=== PATIENT | female | born 1965 | race Caucasian/White ===

== ENCOUNTER 2019-05-25 15:13 | Emergency (ER) | payer OTHER ==
[~2019-05-25 15:13] MED LIST: AMOXICILLIN/CLA1 TA1 PO; ATIVAN1 MG PO; DEPAKOTE500 MG PO; LEXAPRO 10MG10 MG PO; MACROBID 1100 MG/CAP PO; MEDROL 4MG DOSPA4 MG PO; NASONEX0.05 MG/AC NS; PHENAZOPYRIDIN200 MG PO; PRISTIQ50 M1 PO; ZOFRAN ODT4 MG PO
[2019-05-25] MEDS ORDERED: QUETIAPINE FUM150 MG PO (15:23)
[2019-05-25] MEDS ORDERED: ESCITALOPRAM10 MG PO (15:23)
[2019-05-25] MEDS ORDERED: LORAZEPAM1 M1 PO (15:23)
[2019-05-25 15:36] LABS: EOS # 0.1 (0.04-0.40); EOS % 1.2 % (1.0-5.0); HEMOGLOBIN 15.4 g/dL (12.5-16.0); MEAN CELL VOLUME 88 fl (78-100); MEAN CORPUSCULAR HEMOGLOBIN 29 pg (27-31); MEAN CORPUSCULAR HGB CONC 33 g/dL (33-37); MEAN PLATELET VOLUME 8.8 fl (7.4-10.4); MONO # 0.5 (0.20-0.80); NEU # 4.6 (1.40-6.50); PLATELET COUNT 346 K/mm3 (130-400); RED BLOOD COUNT 5.36 M/mm3 (4.10-5.30); RED CELL DISTRIBUTION WIDTH 14.4 % (11.5-14.5); WHITE BLOOD COUNT 5.9 K/mm3 (4.8-10.8)
[2019-05-25 15:37] LABS: LYMPH# 0.7 (1.50-4.00)
[2019-05-25 15:44] LABS: POTASSIUM 3.4 mmol/L (3.5-5.1)
[2019-05-25 15:45] LABS: CALCIUM 8.8 mg/dL (8.3-10.5)
[2019-05-25] MEDS ORDERED: ZOFRAN ODT4 MG PO (16:27)
[2019-05-25] MEDS ORDERED: GUAIFEN-CODEINE5 ML PO (16:27)
[2019-05-25 16:33] VITALS: BP 131/74
== END 2019-05-25 16:35 | disposition home or self-care (01) ==
LOC: ED 15:13
PROVIDERS: Family Medicine
DX: J06.9 Acute upper respiratory infection, unspecified (principal); F41.9 Anxiety disorder, unspecified; F32.9 Major depressive disorder, single episode, unspecified; I73.00 Raynaud's syndrome without gangrene

== ENCOUNTER 2021-03-08 13:00 | Outpatient (RCR) | payer OTHER ==
[~2021-03-08 13:00] MED LIST changes: +ESCITALOPRAM10 MG PO; +GUAIFEN-CODEINE5 ML PO; +LORAZEPAM1 M1 PO; +QUETIAPINE FUM150 MG PO
== END 2021-04-15 23:59 | disposition home or self-care (01) ==
LOC: PT 13:00
DX: M46.1 Sacroiliitis, not elsewhere classified (principal)

== ENCOUNTER → 2021-04-02 | Outpatient (CLI) | payer OTHER | LOC: LAB 15:11 | DX: Z20.822 Contact with and (suspected) exposure to COVID-19 (principal) ==

== ENCOUNTER 2021-04-18 13:00 | Outpatient (RCR) | payer OTHER | END 2021-04-27 17:00 | disposition home or self-care (01) | LOC: PT 13:00 | DX: M46.1 Sacroiliitis, not elsewhere classified (principal) ==

== ENCOUNTER 2021-12-11 12:38 | Emergency (ER) | payer OTHER ==
[~2021-12-11] VITALS: Ht 170.2 cm; Wt 90.9 kg
[2021-12-11] MEDS ORDERED: HYDROXYZINE PAM25 M1 PO (13:35)
[2021-12-11] MEDS ORDERED: ACETAMINOPHEN-H1 TA2 PO (13:35)
[2021-12-11] MEDS ORDERED: LAMOTRIGINE25 M1 PO (13:35)
[2021-12-11 15:25] VITALS: BP 133/91
== END 2021-12-11 15:23 | disposition home or self-care (01) ==
LOC: ED 12:38
DX: M48.061 Spinal stenosis, lumbar region without neurogenic claudication (principal); M54.16 Radiculopathy, lumbar region
CPT/HCPCS: J1885

== ENCOUNTER → 2021-12-21 | Outpatient (CLI) | payer OTHER ==
[~2021-12-21] MED LIST changes: +ACETAMINOPHEN-H1 TA2 PO; +HYDROXYZINE PAM25 M1 PO; +LAMOTRIGINE25 M1 PO
== END ==
LOC: MAMMO 08:48
DX: Z12.31 Encounter for screening mammogram for malignant neoplasm of breast (principal)